=== PATIENT | male | born 1960 | race Caucasian/White ===

== ENCOUNTER 2016-10-11 02:29 | Inpatient (IN) | payer OTHER ==
[~2016-10-11] VITALS: Ht 180.3 cm; Wt 86.2 kg
[~2016-10-11 02:29] MED LIST: LISINOPRIL20 M1 PO
--- NOTE | 2016-10-11 14:54 | Operative Report ---
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 Gen. anesthesia was obtained and his abdomen was prepped and draped. The skin below the umbilicus was after local anesthesia transverse incision made sharply. Came down through subcutaneous tissues tissues with cautery and grasped the fascia with Joiner's. Fasciotomies crated sharply and stay sutures placed. A blunt Damian port was placed and pneumoperitoneum achieved. A 5 mm port was placed in the suprapubic region, a 5 mm port was placed in the left mid abdomen and a 12 mm port was placed in the epigastric region, all after local anesthesia was instilled and under direct vision the camera. The abdomen was explored. It appeared normal. The right colon was identified and the small bowel swept out of the operative field. Ileocolic pedicle was identified and the peritoneum overlying it scored with cautery proximal transverse colon down to the terminal ileum. Dissection was carried forth and retroperitoneum to encompass the lymphovascular envelope. We then transected the ileocolic artery with the LigaSure device. Care dissection down to the terminal ileum mesentery with the LigaSure. We then carried up north to the proximal transverse colon with the LigaSure device. We then took down the white line of Toldt with electrocautery connected date planes of dissection. The colon was fully mobilized and sites of transection were identified, the ileum was then divided with the Endo ALEYDA stapler. We then made a small laparotomy in the epigastric port site and placed a wound protector. Ileum was brought up and the specimen delivered. The transverse colon was then transected with ALEYDA stapler and right colon passed off the field. Then lined up the small bowel to the transverse colon and placed stay sutures using 3-0 silk. Enterotomies were created sharply and stapler, 80 mm ALEYDA, was placed into the cut ends of the bowel and side to side anastomosis created. The common enterotomy was closed with a reload of the stapler. The anastomosis was intact there is no tension and no ischemia. The bowel was then replaced in the perineal cavity. And pneumoperitoneum reachieved. The abdomen was explored. Renal cavity is irrigated normal saline. Hemostasis was adequate. There is no twisting of the ileum. We then concluded the operation remove the ports. The umbilical fascia was closed with 0 Vicryl suture. The epigastric specimen extraction site was closed with a running 0 Maxon suture. The wounds were then closed with 4-0 Vicryl. Steri-Strips and sterile dressing applied. Sponge and needle counts are correct CC: RONAK TREVINO,ODELL [place]; BANDAR TREVINO,DELPHINE
--- NOTE | 2016-10-11 15:01 | Admission Core Measures ---
Admission Meds I reviewed the following Meds: Current Medications Sig/Kiesha Start time Last Medication Dose Stop Time Status Admin Cefazolin Sodium 2,000 MG ONCE 10/11 NR (Kefzol-Ancef Inj) 10/11 2358 Metronidazole 500 MG Q8 10/11 NR (Flagyl) 10/11 2358 Sodium Chloride 100 ML (Normal Saline 0.9%) Acute Coronary Syndrome Inclusion Criteria ACS Diagnosis No Inpatient Core Measures LDL Reminder: If No, please order W/I first 24hr of stay Congestive Heart Failure Inclusion Criteria CHF Diagnosis No Cerebrovascular accident Inclusion Criteria CVA/TIA Diagnosis No Inpatient Core Measures Bedside Swallow Eval Reminder: If BSE failed, place ST order Antithrombotic Reminder: Order Antithrombotic Medication by end of day 2 Antithrombotic Reminder: Document Reason Antithrombotic Not ordered by end of day 2 AFIB/Flutter Reminder: If Present, add to problem list AFIB/Flutter Reminder: Order Anticoag Medication for pts with AFIB/Flutter Atherosclerosis Reminder: If Present, add to problem list LDL Reminder: If No, please order W/I first 24hr of stay PT Order Reminder: If No, please order Venous thromboembolism Inpatient Core Measures VTE Risk Factors: Age > 40, Obesity, Surgery [facility] prophylaxis d/t No contraindications No VTE Pharm Prophylaxis d/t No contraindications Inclusion Criteria - Per Current guidelines, there needs to be overlap - treatment for the first 5 days of Warfarin therapy. - Parenteral Anticoagulation (IV or SC) needs to be - given along with Warfarin therapy. VTE Diagnosis No VTE Type NONE VTE Confirmed by (Test) NONE Problem List As ranked by this Provider includes Assessment & Plan 1. S/P right colectomy 2. Colon polyp HOME MEDS Home Med List Lisinopril 20 MG TABLET 1 TAB PO DAILY HTN (Reported)
[2016-10-11 16:00] VITALS: BP 118/70
[2016-10-11] MEDS ORDERED: PERCOCET 5-3251 EACH PO (16:40)
--- NOTE | 2016-10-11 16:43 | Patient Discharge Instructions ---
Discharge Instructions General Discharge Information You were seen/treated for: Dysplastic polyp You had these procedures: Surgery Date: 10/11/16 Name of Procedure: Laparoscopic right colectomy Watch for these problems: FEVER>101.3, INCREASED PAIN, REDNESS/SWELLING/DRAINAGE No bath, but you may shower: Yes Other wound care: YOU MAY SHOWER. KEEP INCISIONS CLEAN & DRY. LEAVE WHITE STERI STRIPS IN PLACE. Diet Continue normal diet: Yes Recommended Diet: Low Residue, Regular Activity Full Activity/No Limits: No Activity Self Limited: Yes Pounds, do NOT lift more than: 10 Other activity limits: NO HEAVY LIFTING. NO STRENUOUS ACTIVITY. Acute Coronary Syndrome Inclusion Criteria At DC or during hospital stay patient has or had the following: ACS DIAGNOSIS No Discharge Core Measures Meds if any: Prescribed or Continued at Discharge Meds if any: NOT Prescribed or Continued at Discharge Congestive Heart Failure Inclusion Criteria At DC or during hospital stay patient has or had the following: CHF DIAGNOSIS No Discharge Core Measures Meds if any: Prescribed or Continued at Discharge Meds if any: NOT Prescribed or Continued at Discharge Cerebrovascular accident Inclusion Criteria At DC or during hospital stay patient has or had the following: CVA/TIA Diagnosis No Discharge Core Measures Meds if any: Prescribed or Continued at Discharge Meds if any: NOT Prescribed or Continued at Discharge Venous thromboembolism Inclusion Criteria VTE Diagnosis No VTE Type NONE VTE Confirmed by (Test) NONE Discharge Core Measures - Per Current guidelines, there needs to be overlap - treatment for the first 5 days of Warfarin therapy. - If discharged on Warfarin prior to 5 days of - overlap therapy, the patient will need to be - assessed for post discharge needs including - *Post discharge parental anticoagulation - *Warfarin and/or parental anticoagulation education - *Follow up date to check INR post discharge At least 5 days overlap therapy as Inpatient No Meds if any: Prescribed or Continued at Discharge Note: Overlap Therapy is Warfarin and Anticoagulant Meds if any: NOT Prescribed or Continued at Discharge
--- NOTE | 2016-10-11 16:47 | PN- General Surgery ---
Subjective Subjective: POSTOP CHECK Pain well controlled, tolerating sips of clears, no n/v, no flatus/bm, no cp/ sob. +uo via jordan Objective Vital Signs and I&Os AVSS Physical Exam: GEN: NAD, alert, awake CARD: s1s2 RRR PULM: CTAB ABD: soft, distended, ttp, midline dressing with scant bloody staining, otherwise dressings c/d/i, quiet bs throughout EXT: calves soft nt bl Assessment/Plan Assessment/Plan POD#0 s/p lap R colectomy, stable. PLAN: clr liquid diet jordan, IVF, strict I&Os prn pain meds DVT ppx- hep SQ OOB, ambulate home meds Core Measures/Miscellaneous Venous Thromboembolism VTE Risk Factors: Age > 40, Surgery VTE Contraindications: No Contraindications VTE Diagnosis: No VTE Type: NONE VTE Confirmed by (Test): NONE Beta Endy Is Beta Endy a Home Med? No Antibiotics Is Patient on Antibiotics? Yes
[2016-10-11 19:42] VITALS: BP 114/70
[2016-10-11 22:40] VITALS: BP 70/40
[2016-10-11 22:44] VITALS: BP 124/63
[2016-10-11 23:15] VITALS: BP 82/58
--- NOTE | 2016-10-11 23:18 | Event Note ---
Event Note Event Note: CALLED BY EVENING NURSE WITH BP TAKEN TO BE SYSTOLIC IN THE 70'S CUREENTLY NOT C/O CP, SOB, N+V FEELING BETTER WHEN LYING DOWN CV: RRR LUNGS: CLEAR ABD: SOFT, DRSG DRY NO GUARDING EXT: WARM, NO EDEMA ASSESSMENT: POST OP HYPOTENSION NO CARDIC HX NO ARRYTHMIA PRESENT AT THIS TIME AWAKE ALERT WITH NO COMPLAINTS PLAN NS 500CC BOLUS RECHECK VS AFTER BOLUS
[2016-10-12 00:21] VITALS: BP 92/60
[2016-10-12 01:14] VITALS: BP 92/60
[2016-10-12 04:35] VITALS: BP 86/44
[2016-10-12 05:05] LABS: ABSOLUTE BASOPHIL COUNT 0 /CUMM (0.0-0.2); ABSOLUTE EOSINOPHIL COUNT 0 /CUMM (0.0-0.7); ABSOLUTE GRANULOCYTE CT 7.8 /CUMM (1.4-6.5); ABSOLUTE LYMPH COUNT 1.3 /CUMM (1.2-3.4); ABSOLUTE MONOCYTE COUNT 0.9 /CUMM (0.10-0.60); BASOPHIL % 0 % (0.0-2.0); EOSINOPHIL % 0 % (0-5); GRANULOCYTE % 78.7 % (42.2-75.2); MEAN CORPUSCULAR HGB 30.5 PG (27.0-31.0); MEAN CORPUSCULAR HGB CONC 34.2 G/DL (33.0-37.0); MEAN CORPUSCULAR VOLUME 89.2 FL (80.0-94.0); MEAN PLATELET VOLUME 7.6 FL (7.4-10.4); PLATELET COUNT 223 /CUMM (130-400); RBC DISTRIBUTION WIDTH 12.5 % (11.5-14.5); WHITE BLOOD CELL COUNT 9.9 /CUMM (4.8-10.8)
[2016-10-12 05:09] LABS: HEMATOCRIT 24.9 % (42-52); RED BLOOD CELL CT 2.79 /CUMM (4.70-6.10)
--- NOTE | 2016-10-12 07:46 | PN- General Surgery ---
See Addendum Subjective Subjective: 2 bloody bms overnight associated with hypotension, sbp 70s-80s. Precipitous drop in h/h from pre-op blood work. Toradol & heparin sc held. He reported some dizziness when out of bed to bathroom. Feels ok sitting up in bed. No shortness of breath. No chest pains. Tolerating clears. Not nauseous. Passing flatus. Objective Vital Signs and I&Os Vital Signs Date Time Temp Pulse Resp B/P B/P Pulse O2 O2 Flow FiO2 Mean Ox Delivery Rate 10/12 0600 97 Room Air 10/12 0435 98.0 88 18 86/44 98 Room Air 10/12 0114 98.6 68 18 92/60 97 Room Air 10/12 0021 92/60 10/11 2315 74 82/58 10/11 2244 97.7 74 20 124/63 98 Room Air 10/11 2240 60 16 70/40 98 Room Air 10/11 2200 98 Room Air 10/11 1942 97.9 74 18 114/70 96 Room Air 10/11 1645 98 Room Air 10/11 1600 98.5 72 18 118/70 98 Room Air Intake & Output 10/12 0800 10/12 0000 10/11 1600 10/11 0800 10/11 0000 10/10 1600 Intake Total 1400 1825 Output Total 700 500 Balance 700 1325 Intake, IV 1000 1375 Intake, Oral 400 450 Number 3 Bowel Movements Output, Urine 700 500 Patient 190 lb Weight Physical Exam: General - alert & oriented x 3. comfortable. no acute distress. Lungs - clear bilaterally. no w/r/r. Cardiac - s1s2. reg. Abdomen - bowel sounds appreciated. dressings stained, but intact. expected evonne -incisional tenderness. - jordan draining clear, yellow urine. Extremities - warm bilaterally. no c/c/e. calves soft and nontender b/l. athrombics active. Current Medications: Current Medications Sig/Kiesha Start time Last Medication Dose Route Stop Time Status Admin Acetaminophen 650 MG Q6P PRN 10/11 1700 AC PO Acetaminophen 1,000 MG .STK-MED ONE 10/11 1209 DC IV 10/11 1210 Cefazolin Sodium 2,000 MG IQ8 10/11 2000 CAN IV 10/12 0801 Cefazolin Sodium 2 GM Q8H 10/12 1999 DC 10/12 N/A 1 UNIT IV 10/12 0429 0425 Cefazolin Sodium 2,000 MG ONCE 10/11 0000 DC IV 10/11 2359 Dextrose/Sodium 1,000 ML Q8H 10/11 1700 AC 10/12 Chloride IV 0015 Fentanyl Citrate 250 MCG .STK-MED ONE 10/11 1209 DC IM 10/11 1210 Heparin Sodium 5,000 UNIT Q8 10/11 2200 DC 10/11 (Porcine) SC 2132 Hydromorphone HCl 2 MG .STK-MED ONE 10/11 1550 DC IM 10/11 1551 Hydromorphone HCl 2 MG .STK-MED ONE 10/11 1209 DC IM 10/11 1210 Ketorolac 30 MG Q6 10/11 1800 DC 10/12 Tromethamine IV 10/13 1759 0555 Lisinopril 20 MG DAILY 10/12 1000 AC PO Metronidazole 500 MG IQ8 10/11 2000 AC 10/11 N/A 1 UNIT IV 10/12 0859 2132 Metronidazole 500 MG Q8 10/11 0000 DC Sodium Chloride 100 ML IV 10/11 2359 Midazolam HCl 2 MG .STK-MED ONE 10/11 1210 DC IM 10/11 1211 Morphine Sulfate 2 MG Q3P PRN 10/11 1700 AC IV Morphine Sulfate 4 MG Q3P PRN 10/11 1700 AC IV Morphine Sulfate 6 MG Q3P PRN 10/11 1700 AC IV Sodium Chloride 500 ML BOLUS ONE 10/11 2245 DC 10/11 IV 10/11 2344 2251 Results Last 48 Hours of Labs: Laboratory Tests 10/12 0445 Chemistry Sodium (137 - 145 mmol/L) 135 L Potassium (3.5 - 5.1 mmol/L) 4.3 Chloride (98 - 107 mmol/L) 106 Carbon Dioxide (22 - 30 mmol/L) 25 Anion Gap (5 - 16) 4 L BUN (9 - 20 mg/dL) 12 Creatinine (0.7 - 1.2 mg/dL) 1.0 Estimated GFR (>60 ml/min) > 60 BUN/Creatinine Ratio (7 - 25 %) 12.0 Magnesium (1.6 - 2.3 mg/dL) 1.8 Hematology CBC w Diff NO MAN DIFF REQ WBC (4.8 - 10.8 /CUMM) 9.9 RBC (4.70 - 6.10 /CUMM) 2.79 L Hgb (14.0 - 18.0 G/DL) 8.5 L Hct (42 - 52 %) 24.9 L MCV (80.0 - 94.0 FL) 89.2 MCH (27.0 - 31.0 PG) 30.5 RDW (11.5 - 14.5 %) 12.5 Plt Count (130 - 400 /CUMM) 223 MPV (7.4 - 10.4 FL) 7.6 Gran % (42.2 - 75.2 %) 78.7 H Lymphocytes % (20.5 - 51.1 %) 12.7 L Monocytes % (1.7 - 9.3 %) 8.6 Eosinophils % (0 - 5 %) 0 Basophils % (0.0 - 2.0 %) 0 L Absolute Granulocytes (1.4 - 6.5 /CUMM) 7.8 H Absolute Lymphocytes (1.2 - 3.4 /CUMM) 1.3 Absolute Monocytes (0.10 - 0.60 /CUMM) 0.9 H Absolute Eosinophils (0.0 - 0.7 /CUMM) 0 Absolute Basophils (0.0 - 0.2 /CUMM) 0 PUBS MCHC (33.0 - 37.0 G/DL) 34.2 Assessment/Plan Assessment/Plan This 56 year old with hx htn is POD#1 s/p lap R colectomy for dysplastic colon polyp, with 2 episodes of bloody bms overnight and hypotension with associated dizziness type and screen ordered toradol and hep sc held holding lisinopril this morning f/u cbc @ noon tolerating clears. will drop iv fluid rate. consider advancing to fulls d/c jordan oob/ambulation with assistance morphine prn pain control will d/w Core Measures/Miscellaneous Venous Thromboembolism VTE Risk Factors: Age > 40, Surgery VTE Contraindications: No Contraindications VTE Diagnosis: No VTE Type: NONE VTE Confirmed by (Test): NONE Beta Endy Is Beta Endy a Home Med? No Antibiotics Is Patient on Antibiotics? Yes
[2016-10-12 12:03] LABS: ABSOLUTE BASOPHIL COUNT 0 /CUMM (0.0-0.2); ABSOLUTE EOSINOPHIL COUNT 0 /CUMM (0.0-0.7); ABSOLUTE GRANULOCYTE CT 5.9 /CUMM (1.4-6.5); ABSOLUTE LYMPH COUNT 1.9 /CUMM (1.2-3.4); ABSOLUTE MONOCYTE COUNT 0.9 /CUMM (0.10-0.60); BASOPHIL % 0.2 % (0.0-2.0); EOSINOPHIL % 0.2 % (0-5); GRANULOCYTE % 68.1 % (42.2-75.2); MEAN CORPUSCULAR HGB 30.3 PG (27.0-31.0); MEAN CORPUSCULAR HGB CONC 34.3 G/DL (33.0-37.0); MEAN CORPUSCULAR VOLUME 88.5 FL (80.0-94.0); MEAN PLATELET VOLUME 6.9 FL (7.4-10.4); PLATELET COUNT 190 /CUMM (130-400); RBC DISTRIBUTION WIDTH 12.4 % (11.5-14.5); RED BLOOD CELL CT 2.14 /CUMM (4.70-6.10); WHITE BLOOD CELL COUNT 8.7 /CUMM (4.8-10.8)
[2016-10-12 12:41] VITALS: BP 92/60
[2016-10-12 15:29] VITALS: BP 104/52
[2016-10-12 18:45] LABS: ABSOLUTE BASOPHIL COUNT 0 /CUMM (0.0-0.2); ABSOLUTE EOSINOPHIL COUNT 0 /CUMM (0.0-0.7); ABSOLUTE GRANULOCYTE CT 6.3 /CUMM (1.4-6.5); ABSOLUTE MONOCYTE COUNT 0.9 /CUMM (0.10-0.60); BASOPHIL % 0.3 % (0.0-2.0); EOSINOPHIL % 0.3 % (0-5); GRANULOCYTE % 61.4 % (42.2-75.2); HEMATOCRIT 20.9 % (42-52); MEAN CORPUSCULAR HGB 30.3 PG (27.0-31.0); MEAN CORPUSCULAR HGB CONC 33.8 G/DL (33.0-37.0); MEAN CORPUSCULAR VOLUME 89.7 FL (80.0-94.0); MEAN PLATELET VOLUME 6.6 FL (7.4-10.4); PLATELET COUNT 221 /CUMM (130-400); RBC DISTRIBUTION WIDTH 12.6 % (11.5-14.5); RED BLOOD CELL CT 2.33 /CUMM (4.70-6.10); WHITE BLOOD CELL COUNT 10.3 /CUMM (4.8-10.8)
[2016-10-12 22:43] VITALS: BP 106/54
[2016-10-13 05:47] VITALS: BP 124/62
[2016-10-13 07:41] LABS: ABSOLUTE BASOPHIL COUNT 0 /CUMM (0.0-0.2); ABSOLUTE EOSINOPHIL COUNT 0 /CUMM (0.0-0.7); ABSOLUTE GRANULOCYTE CT 4.3 /CUMM (1.4-6.5); ABSOLUTE LYMPH COUNT 1.9 /CUMM (1.2-3.4); ABSOLUTE MONOCYTE COUNT 0.7 /CUMM (0.10-0.60); MEAN PLATELET VOLUME 7.5 FL (7.4-10.4)
[2016-10-13 08:00] LABS: BASOPHIL % 0.5 % (0.0-2.0); EOSINOPHIL % 0.7 % (0-5); GRANULOCYTE % 61.4 % (42.2-75.2); MEAN CORPUSCULAR HGB 30.6 PG (27.0-31.0); MEAN CORPUSCULAR HGB CONC 34.5 G/DL (33.0-37.0); MEAN CORPUSCULAR VOLUME 88.7 FL (80.0-94.0); PLATELET COUNT 162 /CUMM (130-400); RBC DISTRIBUTION WIDTH 12.4 % (11.5-14.5); RED BLOOD CELL CT 1.84 /CUMM (4.70-6.10); WHITE BLOOD CELL COUNT 7.1 /CUMM (4.8-10.8)
[2016-10-13 08:03] LABS: HEMATOCRIT 16.4 % (42-52)
--- NOTE | 2016-10-13 08:38 | PN- General Surgery ---
See Addendum Subjective Subjective: Patient states he is feeling better overall. He has mild pain in the anterior abdominal region. He denies any nausea or vomiting fever or flulike illness. He is not feeling lightheaded or dizzy, no weakness. He is complaining of mild puffiness around the eyes and in the hands and fingers. He had approximately 4- 5 mildly deformed very dark/black bowel movements. No bimal blood. He is passing gas Objective Vital Signs and I&Os Vital Signs Date Time Temp Pulse Resp B/P B/P Pulse O2 O2 Flow FiO2 Mean Ox Delivery Rate 10/13 0547 98.5 89 20 124/62 99 Room Air 10/13 0000 96 Room Air 10/12 2243 98.9 89 18 106/54 96 Room Air 10/12 1529 99.1 86 20 104/52 96 Room Air 10/12 1400 Room Air 10/12 1241 98.1 79 20 92/60 99 Intake & Output 10/13 1600 10/13 0800 10/13 0000 10/12 1600 10/12 0800 10/12 0000 Intake Total 201 855 9157 1400 1825 Output Total 1250 500 950 700 500 Balance -059 657 6836 700 1325 Intake, IV 290 592 5862 1000 1375 Intake, Oral 668 725 0208 400 450 Number 2 1 2 3 Bowel Movements Output, Urine 1250 500 950 700 500 Patient 190 lb Weight Physical Exam: Well-developed well-nourished no apparent distress. HEENT: Atraumatic, extraocular motion intact Neck: Supple, no lymphadenopathy Heart: Regular rate and rhythm Respiratory: No respiratory distress clear to auscultation bilateral Abdomen: Mild bloody staining on anterior midline incision. Incision is intact, Band-Aids are clean and dry. Mild central abdominal tenderness. Bowel sounds are normal. Extremities: No edema, no calf pain Neuro: Alert and oriented x3 Psych: Mood affect normal, normal memory normal judgment. Skin: Warm and dry, no rash on exposed skin Results Last 48 Hours of Labs: Laboratory Tests 10/13 10/12 0620 1839 Chemistry Sodium (137 - 145 mmol/L) 140 Potassium (3.5 - 5.1 mmol/L) 4.3 Chloride (98 - 107 mmol/L) 109 H Carbon Dioxide (22 - 30 mmol/L) 27 Anion Gap (5 - 16) 4 L BUN (9 - 20 mg/dL) 8 L Creatinine (0.7 - 1.2 mg/dL) 1.0 Estimated GFR (>60 ml/min) > 60 BUN/Creatinine Ratio (7 - 25 %) 8.0 Hematology CBC w Diff NO MAN DIFF REQ NO MAN DIFF REQ WBC (4.8 - 10.8 /CUMM) 7.1 10.3 RBC (4.70 - 6.10 /CUMM) 1.84 L 2.33 L Hgb (14.0 - 18.0 G/DL) 5.6 *L 7.1 *L Hct (42 - 52 %) 16.4 *L 20.9 L MCV (80.0 - 94.0 FL) 88.7 89.7 MCH (27.0 - 31.0 PG) 30.6 30.3 RDW (11.5 - 14.5 %) 12.4 12.6 Plt Count (130 - 400 /CUMM) 162 221 MPV (7.4 - 10.4 FL) 7.5 6.6 L Gran % (42.2 - 75.2 %) 61.4 61.4 Lymphocytes % (20.5 - 51.1 %) 27.1 29.5 Monocytes % (1.7 - 9.3 %) 10.3 H 8.5 Eosinophils % (0 - 5 %) 0.7 0.3 Basophils % (0.0 - 2.0 %) 0.5 0.3 Absolute Granulocytes (1.4 - 6.5 /CUMM) 4.3 6.3 Absolute Lymphocytes (1.2 - 3.4 /CUMM) 1.9 3.0 Absolute Monocytes (0.10 - 0.60 /CUMM) 0.7 H 0.9 H Absolute Eosinophils (0.0 - 0.7 /CUMM) 0 0 Absolute Basophils (0.0 - 0.2 /CUMM) 0 0 PUBS MCHC (33.0 - 37.0 G/DL) 34.5 33.8 10/12 10/12 1141 0445 Chemistry Sodium (137 - 145 mmol/L) 135 L Potassium (3.5 - 5.1 mmol/L) 4.3 Chloride (98 - 107 mmol/L) 106 Carbon Dioxide (22 - 30 mmol/L) 25 Anion Gap (5 - 16) 4 L BUN (9 - 20 mg/dL) 12 Creatinine (0.7 - 1.2 mg/dL) 1.0 Estimated GFR (>60 ml/min) > 60 BUN/Creatinine Ratio (7 - 25 %) 12.0 Magnesium (1.6 - 2.3 mg/dL) 1.8 Hematology CBC w Diff NO MAN DIFF REQ NO MAN DIFF REQ WBC (4.8 - 10.8 /CUMM) 8.7 9.9 RBC (4.70 - 6.10 /CUMM) 2.14 L 2.79 L Hgb (14.0 - 18.0 G/DL) 6.5 *L 8.5 L Hct (42 - 52 %) 19.0 *L 24.9 L MCV (80.0 - 94.0 FL) 88.5 89.2 MCH (27.0 - 31.0 PG) 30.3 30.5 RDW (11.5 - 14.5 %) 12.4 12.5 Plt Count (130 - 400 /CUMM) 190 223 MPV (7.4 - 10.4 FL) 6.9 L 7.6 Gran % (42.2 - 75.2 %) 68.1 78.7 H Lymphocytes % (20.5 - 51.1 %) 21.6 12.7 L Monocytes % (1.7 - 9.3 %) 9.9 H 8.6 Eosinophils % (0 - 5 %) 0.2 0 Basophils % (0.0 - 2.0 %) 0.2 0 L Absolute Granulocytes (1.4 - 6.5 /CUMM) 5.9 7.8 H Absolute Lymphocytes (1.2 - 3.4 /CUMM) 1.9 1.3 Absolute Monocytes (0.10 - 0.60 /CUMM) 0.9 H 0.9 H Absolute Eosinophils (0.0 - 0.7 /CUMM) 0 0 Absolute Basophils (0.0 - 0.2 /CUMM) 0 0 PUBS MCHC (33.0 - 37.0 G/DL) 34.3 34.2 Assessment/Plan Assessment/Plan This 56 year old with hx htn is POD#2 s/p lap R colectomy for dysplastic colon polyp with acute blood loss anemia Patient is asymptomatic, discussed with Dr. Garcia, no transfusion at this time, we'll continue serial H&H, planned for tomorrow morning unless patient become symptomatic throughout the day Advance diet to regular at dinner toradol , aspirin and hep sc held holding lisinopril tolerating clears. IV fluids discontinued. Full diet this morning for breakfast and lunch, advance to regular diet for dinner if tolerates oob/ambulation with assistance Pain medication as needed Iron supplementation Dressing changed Core Measures/Miscellaneous Venous Thromboembolism VTE Risk Factors: Age > 40, Surgery VTE Contraindications: No Contraindications VTE Diagnosis: No VTE Type: NONE VTE Confirmed by (Test): NONE Beta Endy Is Beta Endy a Home Med? No Antibiotics Is Patient on Antibiotics? Yes
[2016-10-13 10:40] VITALS: BP 110/60
[2016-10-13 14:25] VITALS: BP 110/60; BP 120/62
[2016-10-13 18:28] VITALS: BP 120/68
[2016-10-13 19:37] LABS: ABSOLUTE BASOPHIL COUNT 0 /CUMM (0.0-0.2); ABSOLUTE EOSINOPHIL COUNT 0.1 /CUMM (0.0-0.7); ABSOLUTE GRANULOCYTE CT 6.5 /CUMM (1.4-6.5); ABSOLUTE LYMPH COUNT 2.5 /CUMM (1.2-3.4); ABSOLUTE MONOCYTE COUNT 0.8 /CUMM (0.10-0.60); BASOPHIL % 0.4 % (0.0-2.0); EOSINOPHIL % 1.2 % (0-5); GRANULOCYTE % 65.1 % (42.2-75.2); MEAN CORPUSCULAR HGB 31.1 PG (27.0-31.0); MEAN CORPUSCULAR HGB CONC 35.1 G/DL (33.0-37.0); MEAN CORPUSCULAR VOLUME 88.7 FL (80.0-94.0); MEAN PLATELET VOLUME 7.6 FL (7.4-10.4); PLATELET COUNT 216 /CUMM (130-400); RBC DISTRIBUTION WIDTH 12.1 % (11.5-14.5); RED BLOOD CELL CT 2.09 /CUMM (4.70-6.10)
[2016-10-13 19:52] LABS: HEMATOCRIT 18.5 % (42-52)
[2016-10-13 22:22] VITALS: BP 110/64
[2016-10-14 00:40] VITALS: BP 114/62
[2016-10-14 03:56] VITALS: BP 120/66
[2016-10-14 08:13] LABS: ABSOLUTE BASOPHIL COUNT 0 /CUMM (0.0-0.2); ABSOLUTE EOSINOPHIL COUNT 0.1 /CUMM (0.0-0.7); ABSOLUTE GRANULOCYTE CT 3.5 /CUMM (1.4-6.5); ABSOLUTE LYMPH COUNT 2.2 /CUMM (1.2-3.4); ABSOLUTE MONOCYTE COUNT 0.6 /CUMM (0.10-0.60); BASOPHIL % 0.6 % (0.0-2.0); GRANULOCYTE % 54.5 % (42.2-75.2); MEAN CORPUSCULAR HGB 30.8 PG (27.0-31.0); MEAN CORPUSCULAR HGB CONC 35.1 G/DL (33.0-37.0); MEAN CORPUSCULAR VOLUME 87.8 FL (80.0-94.0); MEAN PLATELET VOLUME 7.4 FL (7.4-10.4); PLATELET COUNT 176 /CUMM (130-400); RBC DISTRIBUTION WIDTH 12.8 % (11.5-14.5); RED BLOOD CELL CT 1.77 /CUMM (4.70-6.10); WHITE BLOOD CELL COUNT 6.5 /CUMM (4.8-10.8)
[2016-10-14 08:42] LABS: HEMATOCRIT 15.5 % (42-52)
[2016-10-14 14:14] VITALS: BP 122/60
--- NOTE | 2016-10-14 14:25 | PN- General Surgery ---
Surgical Brief Attending Note Brief Attending Note: stable severe acute blood loss anemia. now s/p transfusion. tolerating diet and ambulatory with bowel function s/p laparoscopic right colectomy. ready for discharge.
--- NOTE | 2016-10-14 14:28 | Surgical Discharge Summary ---
Visit Information Visit Dates Admission Date: 10/11/16 Discharge Date: 10/14/16 History of Present Illness Chief Complaint: Colon polyp Medical History Blood Transfusion Hx: No Cardiovascular: hypertension History of MRSA: No History of VRE: No History of CDIFF: No Isolation History: Standard Surgical History Pertinent Surgical History: colon resection (laparoscopic right), TONISILECTOMY Psychosocial History Where Do You Live? Home What is Your Primary Language? Niuean Review of Systems: Not assessed at discharge Hospital Course Course Attending Physician: JAS COLE MD Primary Care Physician: ODELL SIMONS MD Hospital Course: Patient admitted after uncomplicated laparoscopic right hemicolectomy. Postoperatively he developed an anastomotic bleed. The bleeding ceased spontaneously but resulted in severe acute blood loss anemia. He was started on a diet and was ambulatory. Prior to discharge she complained of dizziness when standing. Therefore transfusion was given prior to discharge. Allergies: Coded Allergies: No Known Allergies (10/05/16) Significant Procedures: Laparoscopic right colectomy Disposition Summary Disposition Principal Diagnosis: Colon polyp Additional Diagnosis: Blood loss anemia Discharge Disposition: home or self care Discharge Instructions General Discharge Information Code Status: Full Code Patient's Diet: Regular low residual Patient's Activity: No lifting greater than 20 pounds Follow-Up Instructions/Appts: 2 weeks as arranged Medications at Discharge Discharge Medications: Continue taking these medications: Lisinopril (Lisinopril) 20 MG TABLET 1 Tablet ORAL DAILY Start taking the following new medications: Oxycodone HCl/Acetaminophen (Percocet 5-325 MG Tablet) 5 MG-325 MG TABLET 1-2 Tablet ORAL EVERY 4-6 HOURS NEEDED as needed for PAIN CONTROL Qty = 36 No Refills Instructions: TAKE DIRECTED. TYLENOL ALTERNATIVELY BUT NOT IN COMBINATION.
== END 2016-10-14 16:00 | DRG 331 ==
LOC: SDA 02:29 → 2NB 02:29 → SDA 07:00 → ENRESERV 15:32 → 2NB 16:45 → ENPENDDIS 10-14 14:43 → 2NB 10-14 16:00
PROVIDERS: Physician Assistant; Physician Assistant Surgical; ADMIT Surgery
PROC: 0DTF0ZZ Resection of Right Large Intestine, Open Approach (ICD-10-PCS; principal; 2016-10-11)
PROC: 0DTB0ZZ Resection of Ileum, Open Approach (ICD-10-PCS; principal; 2016-10-11)
PROC: 3E0T3BZ Introduction of Anesthetic Agent into Peripheral Nerves and Plexi, Percutaneous Approach (ICD-10-PCS; 2016-10-11)
DX: D12.0 Benign neoplasm of cecum (principal); I10 Essential (primary) hypertension; Z87.891 Personal history of nicotine dependence; Z40.09 Encounter for prophylactic removal of other organ
CPT/HCPCS: 2NSBP; 36415; 82436; 86920; 87086; 88309; C9399; J0131; J0690; J1644; J1885; J7040; J7042; P9016

== ENCOUNTER 2016-10-16 21:30 | Emergency (ER) | payer OTHER ==
[~2016-10-16 21:30] MED LIST changes: +PERCOCET 5-3251 EACH PO
[2016-10-16 21:52] VITALS: BP 122/60
--- NOTE | 2016-10-16 21:55 | ED SYNCOPE COMPLAINT ---
History of Present Illness General Chief Complaint: Syncope and Near-Syncope Stated Complaint: SYNCOPE Source: patient, old records Exam Limitations: no limitations Vital Signs & Intake/Output Vital Signs & Intake/Output Vital Signs Date Time Temp Pulse Resp B/P B/P Pulse O2 O2 Flow FiO2 Mean Ox Delivery Rate 10/16 2153 Room Air 10/17 2151 97.9 82 16 122/60 97 Room Air ED Intake and Output 10/17 0000 10/16 1200 Intake Total 1000 Output Total Balance 1000 Intake, IV 1000 Allergies Coded Allergies: No Known Allergies (10/05/16) Reconcile Medications Ferrous Sulfate 325 MG (65 MG IRON) TABLET 1 TAB PO DAILY SUPPLEMENT ( Reported) Lisinopril 20 MG TABLET 1 TAB PO DAILY HTN (Reported) Oxycodone HCl/Acetaminophen (Percocet 5-325 MG Tablet) 5 MG-325 MG TABLET 1-2 TAB PO Q4-6 PRN PRN PAIN CONTROL TAKE DIRECTED. TYLENOL ALTERNATIVELY BUT NOT IN COMBINATION. Triage Note: BIBA C/O WEAKNESS AND NEAR SYNCOPAL EPISODE. RECENT ABD SURGERY. PT HAS BEEN ANEMIC AFTER SURGERY, RECEIVED BLOOD TRANSFUSIONS. PT ARRIVES A+OX4 Triage Nurses Notes Reviewed? yes HPI: Patient had partial colon resection one week ago. The patient had an anastomotic bleed afterward. Patient required 2 units of blood. This evening patient was at home when he developed a gas-like pain periumbilically. Patient then had 4 episodes of stools. There is no blood in his stool. The epigastric pain intensified of 10 out of 10. Follow with his that intense he began to feel lightheaded and broke a cold sweat. Patient felt little nauseous but no vomiting. There is no radiation of the pain. Patient felt like he was in the past so. Patient called 911. By the time he arrived in the emergency department abdominal pain was gone. Patient has no current complaints. Past History Travel History Traveled to [place] past 21 day No Medical History Any Pertinent Medical History? see below for history Cardiovascular: hypertension History of MRSA: No History of VRE: No History of CDIFF: No Surgical History Surgical History: colon resection (laparoscopic right), TONISILECTOMY Psychosocial History What is your primary language Monegasque Tobacco Use: Never used ETOH Use: occasional use Illicit Drug Use: denies illicit drug use Family History Hx Contributory? No Review of Systems Review of Systems Constitutional: Reports: no symptoms. EENTM: Reports: no symptoms. Respiratory: Reports: no symptoms. Cardiovascular: Reports: no symptoms. GI: Reports: see HPI, abdominal pain, diarrhea, nausea. Genitourinary: Reports: no symptoms. Musculoskeletal: Reports: no symptoms. Skin: Reports: no symptoms. Neurological/Psychological: Reports: no symptoms. All Other Systems: Reviewed and Negative Physical Exam Physical Exam General Appearance: well developed/nourished, alert, awake Head: atraumatic, normal appearance Eyes: Bilateral: PERRL, EOMI. Ears, Nose, Throat: normal pharynx, normal ENT inspection Neck: normal inspection, supple, full range of motion Respiratory: normal breath sounds, chest non-tender, no respiratory distress, lungs clear Cardiovascular: regular rate/rhythm, normal peripheral pulses Gastrointestinal: normal bowel sounds, soft, non-tender, no organomegaly Back: normal inspection, normal range of motion Extremities: normal inspection, normal capillary refill, normal range of motion, no edema Psychiatric: awake, alert, oriented x 3 Cranial Nerves: normal hearing, normal speech, PERRL Coordination/Gait: normal gait Motor/Sensory: no motor/sensory deficits Core Measures ACS in differential dx? No CVA/TIA Diagnosis: No Severe Sepsis Present: No Septic Shock Present: No Progress Differential Diagnosis: AMI, orthostatic syncope, pulmonary embolus, vasodepressor syncope Plan of Care: Orders Procedure Date/time Status TROPONIN LEVEL 10/16 2140 Complete COMPREHENSIVE METABOLIC PANEL 10/16 2140 Complete CBC WITHOUT DIFFERENTIAL 10/16 2140 Complete EKG 10/16 2136 Active Laboratory Tests 10/16/162142: Anion Gap 11, Estimated GFR > 60, BUN/Creatinine Ratio 13.6, Glucose 114 H, Calcium 8.5, Total Bilirubin 0.2, AST 25, ALT 44, Alkaline Phosphatase 45, Troponin I < 0.01, Total Protein 5.3 L, Albumin 3.2 L, Globulin 2.1, Albumin/ Globulin Ratio 1.5, CBC w Diff NO MAN DIFF REQ, RBC 2.32 L, MCV 89.9, MCH 30.6, RDW 13.3, MPV 6.9 L, Gran % 64.6, Lymphocytes % 24.0, Monocytes % 8.5, Eosinophils % 2.4, Basophils % 0.5, Absolute Granulocytes 6.0, Absolute Lymphocytes 2.2, Absolute Monocytes 0.8 H, Absolute Eosinophils 0.2, Absolute Basophils 0, PUBS MCHC 34.1 Comments: Patient continues to feel fine. Patient was seen by Dr. Garcia in the emergency department. Patient is stable for discharge. Departure Departure Disposition: HOME OR SELF CARE Condition: Stable Clinical Impression Primary Impression: Syncope Qualifiers: Syncope type: vasovagal syncope Qualified Code: R55 - Syncope and collapse Secondary Impressions: Abdominal pain, unspecified site Qualifiers: Abdominal location: periumbilical Qualified Code: R10.33 - Periumbilical pain Referrals: RONAK TREVINO,ODELL Paris (PCP/Family) Additional Instructions: RETURN IF SYMPTOMS RETURN OR FOR ANY CONCERNS Departure Forms: Customer Survey General Discharge Information
[2016-10-16 21:58] LABS: ABSOLUTE BASOPHIL COUNT 0 /CUMM (0.0-0.2); ABSOLUTE EOSINOPHIL COUNT 0.2 /CUMM (0.0-0.7); ABSOLUTE LYMPH COUNT 2.2 /CUMM (1.2-3.4); ABSOLUTE MONOCYTE COUNT 0.8 /CUMM (0.10-0.60); BASOPHIL % 0.5 % (0.0-2.0); EOSINOPHIL % 2.4 % (0-5); GRANULOCYTE % 64.6 % (42.2-75.2); MEAN CORPUSCULAR HGB 30.6 PG (27.0-31.0); MEAN CORPUSCULAR HGB CONC 34.1 G/DL (33.0-37.0); MEAN CORPUSCULAR VOLUME 89.9 FL (80.0-94.0); MEAN PLATELET VOLUME 6.9 FL (7.4-10.4); RBC DISTRIBUTION WIDTH 13.3 % (11.5-14.5); WHITE BLOOD CELL COUNT 9.3 /CUMM (4.8-10.8)
[2016-10-16 22:03] LABS: PLATELET COUNT 329 /CUMM (130-400); RED BLOOD CELL CT 2.32 /CUMM (4.70-6.10)
[2016-10-16 22:05] LABS: HEMATOCRIT 20.8 % (42-52)
[2016-10-16] MEDS ORDERED: FERROUS SULFAT325 M3 PO (22:16)
== END 2016-10-16 23:32 ==
LOC: ERH 21:30
PROVIDERS: Emergency Medicine
DX: R55 Syncope and collapse (principal); R10.33 Periumbilical pain
CPT/HCPCS: 93005; 93010